=== PATIENT | female | born 2000 | race Caucasian/White ===

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

== ENCOUNTER → 2019-01-26 | Outpatient (CLI) | payer BC ==
--- NOTE | 2019-01-26 10:47 | CT ---
EXAMINATION TYPE: CT sinus wo con DATE OF EXAM: 01/26/2019 COMPARISON: None HISTORY: sinusitis CT DLP: 666 mGycm CONTRAST: None The paranasal sinuses are examined in the axial plane at 2 mm thick sections. Reconstructed images i n the coronal plane were obtained. The maxillary sinuses are clear. The ethmoid air cells are clear. The sphenoid sinuses are clear. The frontal sinuses are clear. The septum is evaluated. There is septal deviation to the right. The ostiomeatal units are patent. IMPRESSIONS: 1. Right septal deviation. 2. No acute or chronic sinusitis.
== END | disposition home or self-care (01) ==
LOC: RADCTMAIN 07:57
PROVIDERS: ATTEND Otolaryngology
DX: J34.2 Deviated nasal septum (principal)
CPT/HCPCS: 70486

== ENCOUNTER → 2021-10-14 | Outpatient (CLI) | payer BC ==
--- NOTE | 2021-10-14 15:01 | XR ---
EXAMINATION TYPE: XR lumbosacral spine min 4V DATE OF EXAM: 10/14/2021 CLINICAL HISTORY: Low back pain. TECHNIQUE: Frontal, lateral, and oblique images of the lumbar spine are obtained. COMPARISON: MRI lumbar spine December 14, 2014 FINDINGS: There are 5 lumbar type vertebral bodies redemonstrated. The lumbar spine shows stable an d satisfactory alignment without evidence of acute fracture or dislocation. Mild disc space narrowing and anterior spurring L4-L5 level otherwise Vertebral body heights and disk space heights are within normal limits. The oblique images appear within normal limits. The overlying soft tissue appears unremarkable. IMPRESSION: As above. MRI 2014 showed eccentric left disc herniation L4-L5 level encroaching on the l eft lateral recess and central left L5 nerve. Correlate clinically.
== END | disposition home or self-care (01) ==
LOC: RADXRYALE 13:04
PROVIDERS: ATTEND Nurse Practitioner Family
DX: M46.06 Spinal enthesopathy, lumbar region (principal); M51.36 Other intervertebral disc degeneration, lumbar region
CPT/HCPCS: 72110

== ENCOUNTER → 2022-02-07 | Outpatient (CLI) | payer OTHER ==
--- NOTE | 2022-02-07 08:17 | US ---
EXAMINATION TYPE: US transvaginal DATE OF EXAM: 02/07/2022 COMPARISON: NONE CLINICAL HISTORY: N91.2 AMENORRHEA,R35.0 URINARY FREQUENCY. missed 1 cycle, on control, negativ e blood test, no pain TECHNIQUE: TV. Transvaginal sonographic images Date of LMP: Nov, no cycle in December EXAM MEASUREMENTS: Uterus: 5.8 x 3.3 x 2.5 cm Endometrial Stripe: 0.5 cm Right Ovary: 2.4 x 2.4 x 1.9 cm Left Ovary: 2.4 x 2.2 x 2.2 cm 1. Uterus: Anteverted wnl 2. Endometrium: wnl 3. Right Ovary: wnl 4. Left Ovary: dominate follicle = 1.9 x 1.8 x 1.9cm 5. Bilateral Adnexa: wnl 6. Posterior cul-de-sac: wnl Fairly homogeneous normal size uterus. Endometrial stripe measures somewhat thin for secretory phase of menstrual cycle. No free fluid in pelvic cul-de-sac. Ovaries symmetric and normal in size with prominent 1.8 cm follicle or simple thin-walled cyst in the left ovary. No suspicious adnexal mass bilaterally. IMPRESSION: As above.
== END | disposition home or self-care (01) ==
LOC: RADUSWWP 06:53
PROVIDERS: ATTEND Family Medicine
DX: N83.292 Other ovarian cyst, left side (principal)
CPT/HCPCS: 76830

== ENCOUNTER → 2024-08-23 | Outpatient (CLI) | payer BC, OTHER ==
--- NOTE | 2024-08-23 15:17 | XR ---
EXAMINATION TYPE: XR knee 4V LT DATE OF EXAM: 08/23/2024 COMPARISON: None HISTORY: Left knee pain twisting injury TECHNIQUE: 3 view left knee standing position FINDINGS: Joint spaces are preserved. No joint effusion is evident. No acute fracture or dislocation evident. Follow up exams can be performed as clinically indicated. MRI can be utilized for soft tissue evaluat ion. IMPRESSION: 1. No acute osseous abnormality left knee [facility], Workstation: [email or web address], 08/23/2024 3:15 PM
== END | disposition home or self-care (01) ==
LOC: RADXRYALE 14:31
PROVIDERS: ATTEND Nurse Practitioner Family
DX: M25.562 Pain in left knee (principal)